=== PATIENT | female | born 1975 | race African-American/Black ===

== ENCOUNTER 2018-04-25 09:36 | Emergency (ER) | payer MEDICARE, MEDICAID ==
[~2018-04-25] VITALS: Ht 172.7 cm; Wt 55.0 kg
[2018-04-25 10:32] LABS: BASOPHILS % 0.7 % (0.0-2.0); EOSINOPHILS % 1.6 % (0.0-5.0); HEMATOCRIT. 36.4 % (36.0-48.0); HEMOGLOBIN. 12.3 g/dL (12.0-16.0); LYMPHOCYTES % 23.9 % (20.0-50.0); MEAN CORPUSCULAR HEMOGLOBIN 28.3 pg (28.0-32.0); MEAN CORPUSCULAR VOLUME 83.9 fL (81.0-99.0); MEAN PLATELET VOLUME 7.7 fl (7.4-10.4); MONOCYTES % 6.3 % (2.0-8.0); NEUTROPHILS % 67.5 % (40.0-76.0); PLATELET 163 x1000/uL (130-400); RED BLOOD CELL COUNT 4.34 mill/uL (4.2-5.4); RED CELL DISTRIBUTION WIDTH 13.9 % (11.6-14.6)
[2018-04-25 10:38] LABS: CHLORIDE 113 mEq/L (98-107)
[2018-04-25 10:40] LABS: INR 1.1; PROTHROMBIN TIME 10.8 sec (9.1-11.1)
[2018-04-25 11:58] VITALS: BP 109/65
== END 2018-04-25 11:58 | disposition home or self-care (01) ==
LOC: ER 10:00
DX: K64.4 Residual hemorrhoidal skin tags (principal); G40.909 Epilepsy, unspecified, not intractable, without status epilepticus; Z86.73 Personal history of transient ischemic attack (TIA), and cerebral infarction without residual deficits
CPT/HCPCS: 36415; 81025; 99284

== ENCOUNTER 2021-01-24 04:08 | Inpatient (IN) | payer MEDICARE, MEDICAID ==
[2021-01-23 21:30] VITALS: BP 123/74
[~2021-01-24] VITALS: Ht 172.7 cm; Wt 59.1 kg
[~2021-01-24 04:08] MED LIST: ASPI-1497 PO; ATAZ1TAB MT; CLIN300C12 PO; EMTR1TAB12 MT; KEPP500 PO; METO25TA6 PO
[2021-01-24] MEDS ORDERED: MORPHINE SULFATE 4 MG/ML CPJ (NOT FOR IM USE) IV STA (05:15)
[2021-01-24] MEDS ORDERED: ONDANSETRON HCL 4MG/2ML INJ IV STA (05:15)
[2021-01-24] MEDS ORDERED: NITROGLYCERIN OINT 1GM/INCH UDPKT TD ONE (05:15)
[2021-01-24 05:51] LABS: BASOPHILS % 0.4 % (0.0-2.0); EOSINOPHILS % 2.9 % (0.0-5.0); HEMATOCRIT. 38.4 % (36.0-48.0); HEMOGLOBIN. 13.1 g/dL (12.0-16.0); LYMPHOCYTES % 34.6 % (20.0-50.0); MEAN CORPUSCULAR HEMOGLOBIN 27.9 pg (28.0-32.0); MEAN PLATELET VOLUME 7.7 fl (7.4-10.4); MONOCYTES % 9.8 % (2.0-8.0); NEUTROPHILS % 52.3 % (40.0-76.0); PLATELET 158 x1000/uL (130-400); RED BLOOD CELL COUNT 4.69 mill/uL (4.2-5.4); RED CELL DISTRIBUTION WIDTH 13.5 % (11.6-14.6)
[2021-01-24 05:54] LABS: CHLORIDE 109 mEq/L (98-107)
[2021-01-24] MEDS ORDERED: IPRATROPIUM/ALBUTEROL 0.5-3(2.5)MG/3ML NEB NEB PRN (10:15)
[2021-01-24] MEDS ORDERED: ONDANSETRON HCL 4MG/2ML INJ IV PRN (10:15)
[2021-01-24] MEDS ORDERED: NA PHOS,M-B/NA PHOS,DI-BA ENEMA 118ML PR PRN (10:15)
[2021-01-24] MEDS ORDERED: MAGNESIUM/ALUMINUM HYDROXIDE/SIMETHICONE 30ML UDC PO PRN (10:15)
[2021-01-24] MEDS ORDERED: GUAIFENESIN 200MG/10ML SUGAR FREE UDC PO PRN (10:15)
[2021-01-24] MEDS ORDERED: TRAMADOL 50MG TABLET PO PRN (10:15)
[2021-01-24] MEDS ORDERED: ZOLPIDEM TARTRATE 5MG TABLET PO PRN (10:15)
[2021-01-24] MEDS ORDERED: NITROGLYCERIN 0.4MG TABLET SL SL PRN (10:15)
[2021-01-24] MEDS ORDERED: DOCUSATE SODIUM 100MG CAPSULE PO PRN (10:15)
[2021-01-24] MEDS ORDERED: CLONIDINE 0.1MG TABLET PO PRN (10:15)
[2021-01-24] MEDS ORDERED: NALOXONE HCL 0.4MG/ML VIAL IV PRN (10:30)
[2021-01-24 11:27] LABS: ETHANOL BLOOD < 10 mg/dL
[2021-01-24 11:30] LABS: LDL CHOLESTEROL 111 mg/dL (5-100)
[2021-01-24 11:32] LABS: HDL CHOLESTEROL 79 mg/dL (40-59)
[2021-01-24] MEDS: ENOXAPARIN 40MG/0.4ML SYR SUBCUT SCH (13:35)
[2021-01-24 15:06] LABS: FOLIC ACID (FOLATE) SERUM 12.8 ng/mL (>5.38)
[2021-01-24] MEDS: METOPROLOL TARTRATE 25MG TABLET PO SCH ×2 (17:42→23:18)
[2021-01-24] MEDS ORDERED: METOPROLOL TARTRATE 5MG/5ML VIAL IV PRN (18:00)
[2021-01-24 21:30] VITALS: BP_SYST 118; BP_SYST 123; BP_DIAS 74
[2021-01-24 21:52] LABS: HCG SCREEN NEGATIVE
[2021-01-24 22:31] LABS: CREATINE KINASE MB FRACTION 1.5 ng/mL (0.5-3.6)
[2021-01-24] MEDS: FAMOTIDINE 20MG TABLET PO SCH (23:18)
[2021-01-24] MEDS: LEVETIRACETAM 500MG TABLET PO SCH (23:18)
[2021-01-24] MEDS: ATORVASTATIN CALCIUM 40MG TABLET PO SCH (23:18)
[2021-01-25] VITALS: BP 129/85
[2021-01-25] MEDS ORDERED: *PATIENT'S OWN MEDICATION STORAGE XX SCH (01:30)
[2021-01-25 04:00] VITALS: BP 108/80
[2021-01-25 06:10] LABS: BASOPHILS % 0.3 % (0.0-2.0); EOSINOPHILS % 2.1 % (0.0-5.0); HEMATOCRIT. 37.2 % (36.0-48.0); HEMOGLOBIN. 12.4 g/dL (12.0-16.0); LYMPHOCYTES % 33.7 % (20.0-50.0); MEAN CORPUSCULAR HEMOGLOBIN 27.3 pg (28.0-32.0); MEAN CORPUSCULAR VOLUME 81.8 fL (81.0-99.0); MONOCYTES % 8.3 % (2.0-8.0); NEUTROPHILS % 55.6 % (40.0-76.0); PLATELET 145 x1000/uL (130-400); RED BLOOD CELL COUNT 4.55 mill/uL (4.2-5.4); RED CELL DISTRIBUTION WIDTH 13.4 % (11.6-14.6)
[2021-01-25 06:32] LABS: CHLORIDE 111 mEq/L (98-107)
[2021-01-25 06:53] LABS: PHOSPHORUS 3.2 mg/dL (2.5-4.9)
[2021-01-25] MEDS ORDERED: NITROGLYCERIN SPRAY/4.9GM CAN TL SCH (07:15)
[2021-01-25 08:00] VITALS: BP 106/88
[2021-01-25] MEDS: FAMOTIDINE 20MG TABLET PO SCH ×2 (08:39→20:21)
[2021-01-25] MEDS: ENOXAPARIN 40MG/0.4ML SYR SUBCUT SCH (08:39)
[2021-01-25] MEDS ORDERED: IOHEXOL-350 100 ML BOTTLE ONE (10:33)
[2021-01-25] MEDS: LEVETIRACETAM 500MG TABLET PO SCH ×2 (13:25→20:21)
[2021-01-25] MEDS: ZINC SULFATE 220 MG ( 50 ) CAPSULE PO SCH (13:25)
[2021-01-25] MEDS: CHOLECALCIFEROL (D3) 1000 UNIT TABLET PO SCH (13:25)
[2021-01-25] MEDS: METOPROLOL TARTRATE 25MG TABLET PO SCH ×2 (13:27→20:21)
[2021-01-25] MEDS: DESCOVY PO SCH (13:28)
[2021-01-25] MEDS: EVOTAZ PO SCH (13:28)
[2021-01-25 16:00] VITALS: BP 114/53
[2021-01-25 20:00] VITALS: BP 113/83
[2021-01-25] MEDS: ATORVASTATIN CALCIUM 40MG TABLET PO SCH (20:21)
[2021-01-26] VITALS: BP 102/65
[2021-01-26 04:00] VITALS: BP 113/69
[2021-01-26 08:00] VITALS: BP 113/68
[2021-01-26] MEDS: CHOLECALCIFEROL (D3) 1000 UNIT TABLET PO SCH (09:01)
[2021-01-26] MEDS: LEVETIRACETAM 500MG TABLET PO SCH (09:01)
[2021-01-26] MEDS: METOPROLOL TARTRATE 25MG TABLET PO SCH (09:02)
[2021-01-26] MEDS: ZINC SULFATE 220 MG ( 50 ) CAPSULE PO SCH (09:02)
[2021-01-26] MEDS: FAMOTIDINE 20MG TABLET PO SCH (09:02)
[2021-01-26] MEDS: DESCOVY PO SCH (09:03)
[2021-01-26] MEDS: EVOTAZ PO SCH (09:03)
[2021-01-26] MEDS: ENOXAPARIN 40MG/0.4ML SYR SUBCUT SCH (09:03)
[2021-01-26 12:00] VITALS: BP 106/69
[2021-01-26 12:25] VITALS: BP 106/69
== END 2021-01-26 15:12 | disposition home or self-care (01) | DRG 206 ==
LOC: ER 04:08 → MICUSO 04:40 → 8WST 19:19
PROVIDERS: ADMIT Internal Medicine; ATTEND Internal Medicine
DX: M94.0 Chondrocostal junction syndrome [Tietze] (principal); G40.909 Epilepsy, unspecified, not intractable, without status epilepticus; I49.3 Ventricular premature depolarization; J45.909 Unspecified asthma, uncomplicated; F41.9 Anxiety disorder, unspecified; I34.0 Nonrheumatic mitral (valve) insufficiency; Z59.0 Homelessness; Z86.73 Personal history of transient ischemic attack (TIA), and cerebral infarction without residual deficits; Z88.6 Allergy status to analgesic agent; Z88.0 Allergy status to penicillin; Z88.8 Allergy status to other drugs, medicaments and biological substances; Z79.899 Other long term (current) drug therapy; Z79.82 Long term (current) use of aspirin; R53.81 Other malaise
CPT/HCPCS: 36415; 71045; 75571; 80053; 80061; 80320; 82550; 82553; 82607; 82746; 83036; 83615; 83735; 83880; 84100; 84484; 84703; 85025; 85379; 93005; 93306; 93970; 97161; 97165; 99285; J1650; J2270; J2405; Q9967; G0480

== ENCOUNTER 2021-03-02 20:46 | Emergency (ER) | payer MEDICARE, MEDICAID ==
[~2021-03-02] VITALS: Ht 170.2 cm; Wt 54.0 kg
[2021-03-03] MEDS ORDERED: ACETAMINOPHEN 325MG TABLET PO ONE (00:45)
[2021-03-03] MEDS ORDERED: IBUPROFEN 400MG TABLET PO ONE (00:45)
[2021-03-03 01:30] VITALS: BP 116/66
[2021-03-03] MEDS ORDERED: IBUP-2028 MT (01:44)
[2021-03-03] MEDS ORDERED: ATAZ1TAB MT (01:44)
== END 2021-03-03 02:11 | disposition home or self-care (01) ==
LOC: ER 20:46
DX: M79.605 Pain in left leg (principal); G40.909 Epilepsy, unspecified, not intractable, without status epilepticus; J45.909 Unspecified asthma, uncomplicated; Z86.73 Personal history of transient ischemic attack (TIA), and cerebral infarction without residual deficits
CPT/HCPCS: 99282

== ENCOUNTER → 2021-03-10 | Outpatient (CLI) | payer MEDICARE, MEDICAID ==
[~2021-03-10] MED LIST changes: +IBUP-2028 MT
== END | disposition home or self-care (01) ==
LOC: PVL 11:26
PROVIDERS: ATTEND Internal Medicine
DX: I73.9 Peripheral vascular disease, unspecified (principal)
CPT/HCPCS: 93923

== ENCOUNTER 2021-05-14 23:45 | Emergency (ER) | payer MEDICARE, MEDICAID ==
[~2021-05-14] VITALS: Ht 172.7 cm; Wt 55.0 kg
[2021-05-15] MEDS ORDERED: ATAZ1TAB MT (01:08)
[2021-05-15] MEDS ORDERED: EMTR1TAB12 MT (01:09)
[2021-05-15 07:20] VITALS: BP 122/48
== END 2021-05-15 07:46 | disposition home or self-care (01) ==
LOC: ER 23:45
DX: Z76.0 Encounter for issue of repeat prescription (principal); J45.909 Unspecified asthma, uncomplicated; Z88.0 Allergy status to penicillin; Z79.899 Other long term (current) drug therapy; Z86.59 Personal history of other mental and behavioral disorders; Z88.6 Allergy status to analgesic agent
CPT/HCPCS: 99281; 99283

== ENCOUNTER → 2022-11-15 | Day surgery (SDC) | payer MEDICARE, MEDICAID ==
[~2022-11-15] VITALS: Ht 173 cm; Wt 54.4 kg
[~2022-11-15] MED LIST changes: +ACETAMINOPHEN 325MG TABLET PO PRN; +ATROPINE SULFATE 1MG/10ML SYR IV PRN; +CLIN-194 PO; -CLIN300C12 PO; +HEPARIN 1000 UNITS/ML 10ML ONE; +IODIXANOL 320MG/ML 100 ML BOTTLE IV ONE; +LEVE10006 PO; +LIDOCAINE HCL/PF 2% 20MG/ML 5 ML/VIAL ONE; +METR-167 MT; +ONDANSETRON HCL 4MG/2ML INJ ONE; +PERM60CR4 TP; +PROP150T3 PO; +VERAPAMIL HCL 2.5 MG/1 ML 2ML VIAL IV ONE
[2022-11-15 07:54] LABS: BASOPHILS % 0.2 % (0.0-2.0); EOSINOPHILS % 0.7 % (0.0-5.0); HEMATOCRIT. 39.2 % (36.0-48.0); HEMOGLOBIN. 13.2 g/dL (12.0-16.0); LYMPHOCYTES % 32.2 % (20.0-50.0); MEAN CORPUSCULAR HEMOGLOBIN 27.4 pg (28.0-32.0); MEAN CORPUSCULAR VOLUME 81.4 fL (81.0-99.0); MEAN PLATELET VOLUME 7.2 fl (7.4-10.4); MONOCYTES % 5.6 % (2.0-8.0); NEUTROPHILS % 61.3 % (40.0-76.0); PLATELET 156 x1000/uL (130-400); RED BLOOD CELL COUNT 4.82 mill/uL (4.2-5.4); RED CELL DISTRIBUTION WIDTH 15.3 % (11.6-14.6)
[2022-11-15 08:01] LABS: CHLORIDE 102 mEq/L (98-107)
[2022-11-15 08:36] LABS: PROTHROMBIN TIME 11.2 sec (9.6-11.0)
== END | disposition home or self-care (01) ==
LOC: CCL 06:12
PROVIDERS: ATTEND Internal Medicine
DX: I49.01 Ventricular fibrillation (principal); I49.9 Cardiac arrhythmia, unspecified; I25.2 Old myocardial infarction; Z86.73 Personal history of transient ischemic attack (TIA), and cerebral infarction without residual deficits; Z79.82 Long term (current) use of aspirin; Z79.899 Other long term (current) drug therapy; Z88.0 Allergy status to penicillin; Z88.8 Allergy status to other drugs, medicaments and biological substances; Z98.890 Other specified postprocedural states; Z82.49 Family history of ischemic heart disease and other diseases of the circulatory system; Z83.3 Family history of diabetes mellitus
CPT/HCPCS: 36415; 80048; 85025; 85610; 93458; C1769; C1887; C1893; J1644; J2405; J3490; Q9967; Z7610

== ENCOUNTER 2022-11-20 18:03 | Emergency (ER) | payer MEDICARE, MEDICAID ==
[~2022-11-20] VITALS: Ht 172.7 cm; Wt 54.1 kg
[~2022-11-20 18:03] MED LIST changes: -ACETAMINOPHEN 325MG TABLET PO PRN; -ATROPINE SULFATE 1MG/10ML SYR IV PRN; -HEPARIN 1000 UNITS/ML 10ML ONE; -IODIXANOL 320MG/ML 100 ML BOTTLE IV ONE; -LIDOCAINE HCL/PF 2% 20MG/ML 5 ML/VIAL ONE; -METR-167 MT; -ONDANSETRON HCL 4MG/2ML INJ ONE; -PERM60CR4 TP; -VERAPAMIL HCL 2.5 MG/1 ML 2ML VIAL IV ONE
[2022-11-20 18:08] VITALS: BP 11/67
[2022-11-20] MEDS ORDERED: CEFTRIAXONE SODIUM 500 MG/VIAL IM ONE (20:00)
[2022-11-20] MEDS ORDERED: AZITHROMYCIN 500 MG TABLET PO ONE (20:00)
[2022-11-20] MEDS ORDERED: PERM60CR4 TP (20:01)
[2022-11-20] MEDS ORDERED: METR-167 MT (21:07)
== END 2022-11-20 21:33 | disposition home or self-care (01) ==
LOC: ER 18:03
DX: A59.9 Trichomoniasis, unspecified (principal); J45.909 Unspecified asthma, uncomplicated; Z11.3 Encounter for screening for infections with a predominantly sexual mode of transmission; Z88.0 Allergy status to penicillin; Z88.6 Allergy status to analgesic agent; Z79.82 Long term (current) use of aspirin; Z86.73 Personal history of transient ischemic attack (TIA), and cerebral infarction without residual deficits
CPT/HCPCS: 96372; 99283; J0696

== ENCOUNTER → 2023-04-27 | Outpatient (CLI) | payer MEDICARE, MEDICAID ==
[~2023-04-27] MED LIST changes: +APIX5TAB PO; +METR-167 MT; +PERM60CR4 TP
== END | disposition home or self-care (01) ==
LOC: US 17:01
PROVIDERS: ATTEND Internal Medicine
DX: I82.890 Acute embolism and thrombosis of other specified veins (principal); D25.9 Leiomyoma of uterus, unspecified
CPT/HCPCS: 76830; 76856